=== PATIENT | female | born 1985 | race African-American/Black ===

== ENCOUNTER 2019-05-04 01:44 | Emergency (ER) | payer SELFPAY ==
[~2019-05-04] VITALS: Ht 172.7 cm; Wt 55.3 kg
--- NOTE | 2019-05-04 02:23 | NUR ---
MD BUSTILLOS TORADOL 30MG TO BE GIVEN, PT GAVE 2 DAYS AGO. HCG TEST NOT REQUIRED.
[2019-05-04] MEDS ORDERED: KETOROLAC TROMETHAMINE INJ 30 MG/ML VIAL ONE (02:25)
[2019-05-04] MEDS ORDERED: KETOROLAC TROMETHAMINE INJ 60 MG/2 ML VIAL IM ONE (02:30)
--- NOTE | 2019-05-04 02:45 | NUR ---
Patient discharged to home in stable condition. Written and verbal after care instructions given. Patient verbalizes understanding of instruction.
[2019-05-04 02:48] VITALS: BP 128/76
== END 2019-05-04 02:48 | disposition home or self-care (01) ==
LOC: ER 01:46
DX: M54.12 Radiculopathy, cervical region (principal); Z98.890 Other specified postprocedural states
CPT/HCPCS: 93005; 96372; 99283; J1885

== ENCOUNTER 2021-01-05 06:03 | Emergency (ER) | payer SELFPAY ==
[~2021-01-05] VITALS: Ht 172.7 cm; Wt 55.8 kg
--- NOTE | 2021-01-05 06:20 | NUR ---
PATIENT CAME TO THE ER BED 2 BIBSELF C/O LEFT SIDED SHARP, SHOOTING PAIN THAT IS CONSTANT. 8/10 PAIN. PATIENT STATES THAT IT RADIATES TO THE LEFT ARM. PATIENT IS ALERT AND ORIENTED x4. DENIES SHORTNESS OF BREATH. CONNECTED TO THE MONITOR.
[2021-01-05 07:41] LABS: BASOPHILS % (AUTO) 0.7 % (0.0-2.0); EOSINOPHILS % (AUTO) 2.6 % (0.0-6.0); HEMATOCRIT 40 % (33-45); HEMOGLOBIN 12.6 g/dL (11.5-14.8); LYMPHOCYTES # (AUTO) 1.5 K/uL (0.8-4.8); LYMPHOCYTES % (AUTO) 21.9 % (20.0-44.0); MEAN CORPUSCULAR HGB CONC 32 g/dl (31.0-36.0); MEAN CORPUSCULAR VOLUME 81 fL (82-100); MONOCYTES # (AUTO) 0.6 K/uL (0.1-1.30); MONOCYTES % (AUTO) 8.8 % (2.0-12.0); NEUTROPHILS # (AUTO) 4.4 K/uL (1.8-8.9); PLATELET COUNT (AUTO) 276 K/uL (150-450); RED BLOOD CELL COUNT(AUTO) 4.94 MIL/uL (4.0-5.2); WHITE BLOOD COUNT (AUTO) 6.6 K/uL (4.3-11.0)
[2021-01-05] MEDS ORDERED: IBUP-1955 PO (07:46)
[2021-01-05 08:02] LABS: CALCIUM, SERUM 9.2 mg/dL (8.5-10.1); CARBON DIOXIDE 28 mmol/L (21-32); CHLORIDE 105 mmol/L (98-107); CREATININE 0.9 mg/dL (0.6-1.3); GLUCOSE 87 mg/dL (74-106); SODIUM SERUM 141 mmol/L (136-145); UREA NITROGEN, BLOOD 9 mg/dL (7-18)
[2021-01-05 09:14] VITALS: BP 118/67
--- NOTE | 2021-01-05 09:14 | NUR ---
Patient discharged to home in stable condition. Written and verbal after care instructions given. Patient verbalizes understanding of instruction.
== END 2021-01-05 09:15 | disposition home or self-care (01) ==
LOC: ER 06:15
DX: R07.89 Other chest pain (principal); Z98.890 Other specified postprocedural states
CPT/HCPCS: 36415; 71045-TC; 80048-TC; 84484-TC; 85025-TC